=== PATIENT | female | born 1995 | race Caucasian/White ===

== ENCOUNTER 2020-12-08 17:20 | Emergency (ER) | payer MEDICAID ==
[~2020-12-08] VITALS: Ht 165.1 cm; Wt 66.4 kg
[2020-12-08 18:07] VITALS: BP 113/82; TEMP 98.1
[2020-12-08] MEDS ORDERED: PREDNISONE10 MG PO (18:24)
[2020-12-08 18:40] VITALS: PULSE 71
== END 2020-12-08 18:41 | disposition home or self-care (01) ==
LOC: COL.ER 17:20
DX: L50.9 Urticaria, unspecified (principal)
CPT/HCPCS: J7512

== ENCOUNTER 2021-11-16 13:03 | Emergency (ER) | payer MEDICAID ==
[~2021-11-16] VITALS: Ht 165.1 cm; Wt 59.1 kg
[~2021-11-16 13:03] MED LIST: PREDNISONE10 MG PO
[2021-11-16 13:21] VITALS: TEMP 97.8
[2021-11-16] MEDS ORDERED: NORCO 325 MG-51 TAB PO (15:28)
[2021-11-16 16:43] VITALS: BP 122/76; PULSE 80
== END 2021-11-16 16:50 | disposition home or self-care (01) ==
LOC: COL.ER 13:03
DX: S62.306A Unspecified fracture of fifth metacarpal bone, right hand, initial encounter for closed fracture (principal); F17.290 Nicotine dependence, other tobacco product, uncomplicated; W18.40XA Slipping, tripping and stumbling without falling, unspecified, initial encounter; Y92.009 Unspecified place in unspecified non-institutional (private) residence as the place of occurrence of the external cause

== ENCOUNTER 2023-08-28 18:26 | Outpatient (CLI) | payer MEDICAID ==
[~2023-08-28] VITALS: Ht 165.1 cm; Wt 90.5 kg
[~2023-08-28 18:26] MED LIST changes: +NAPROSYN500 MG PO; +NORCO 325 MG-51 TAB PO; +REGLAN 10MG10 MG/TAB PO; +TESSALON PERLE200 MG PO
--- NOTE | 2023-08-28 18:40 | NUR ---
G4L3. 39.0. Ambulatory to LDR 3 with her mothers. Clean gown on. EFM and TOCO explained and applied. Pt states that she has been having "back pain and belly tightening." Pt reports not feeling her contractions with her last labors so she wanted to see if she was having contractions. Plan of care explained to pt and mother. 1899: at nurses station and update on pt's status given and FHR strip reviewed. See physican notification. 1999: SVE unchanged. Questions answered and pt off monitors to changed. 2010: Discharge instructions given to pt and mother who verbalize their understanding. Pt ambulatory off unit.
[2023-08-28 19:00] VITALS: BP 135/88; PULSE 102; TEMP 98.1
[2023-08-28] MEDS ORDERED: LR 1,000 ML IV PRN (19:15)
[2023-08-28 19:30] VITALS: BP 128/78; PULSE 83
[2023-08-28 20:01] VITALS: BP 121/79; PULSE 96
== END 2023-08-28 20:10 | disposition home or self-care (01) ==
LOC: LDRO 18:26
DX: O47.1 False labor at or after 37 completed weeks of gestation (principal); Z3A.39 39 weeks gestation of pregnancy

== ENCOUNTER 2023-09-01 08:51 | Inpatient (IN) | payer MEDICAID ==
[~2023-09-01] VITALS: Ht 165.1 cm; Wt 90.5 kg
[2023-09-01] VITALS (50 sets, daily range): BP systolic 118–168; BP diastolic 65–102; PULSE 58–119; TEMP 98–98.8
--- NOTE | 2023-09-01 09:00 | NUR ---
0900PT AMBULATORY TO UNIT FOR SROM CHECK. PT CHANGED INTO GOWN. PT COMFORTABLE IN BED. 0905THIS RN AT BEDSIDE TO PLACE TOCO AND EFM. EFM TRACING CAT I. PT DENIES REGULAR CTX PATTERN, JUST TO OCCASIONAL TIGHETENIG OF HER STOMACH. PT REPORTS POSITIVE MOVEMENT. PT STATES SHE THINKS MAYBE HER WATER BROKE. SHE WOKE UP THIS MORNING AND HAD SOME LEAKAGE IN HER UNDERWEAR. SHE GOT DRESSED AND PUT A PAD ON. SHE TOOK HER DAUGHTER TO THE BUS STATION, AND THEN FELT SOME MORE LEAKING. 0910SVE PER THIS RN. -/-3. AMNITRACE X2 INCONCLUSIVE. 0915ROM PLUS PERFORMED AT THIS TIME.
[2023-09-01] MEDS ORDERED: LR 1,000 ML IV PRN (09:30)
--- NOTE | 2023-09-01 09:50 | NUR ---
PT OFF MONITOR. INTERMITTENT MONITORING. EFM TRACING CAT I. PT SITTING UP RIGHT IN THE BED.
--- NOTE | 2023-09-01 10:45 | NUR ---
PT PLUGGED BACK INTO MONITORS IN BY YESSI VILLEDA. THIS RN WAS IN ANOTHER PT ROOM PREPARING FOR DELIVERY.
[2023-09-01] MEDS ORDERED: LR 1,000 ML IV SCH (11:00)
[2023-09-01] MEDS ORDERED: ceFAZolin 2 G in Water For Injection,Sterile 20 ML IV ONE (11:00)
[2023-09-01] MEDS ORDERED: LR & Oxytocin 500 ML IV SCH (11:00)
--- NOTE | 2023-09-01 11:00 | NUR ---
THIS RN ASSUMES CARE OF PT AT THIS TIME. ON UNIT WITH VERBAL ORDERS TO ADMIT PATIENT, START PITOCIN, AND THAT PT MAY HAVE AN EPIDURAL UPON REQUEST. REMAINS ON UNIT AT THIS TIME.
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
[2023-09-01 12:26] LABS: BASO % 0.5 % (0.0-2.0); EOS # 0.1 K/mm3 (0.0-0.7); EOS % 1.1 % (0.0-4.0); GRAN # 6.7 K/mm3 (1.4-6.5); GRAN % 74.9 % (42.2-75.2); HEMOGLOBIN 11.4 g/dl (12.5-16.0); LYMPH # 1.5 K/mm3 (1.2-3.4); MEAN CELL VOLUME 82 fl (80.0-100.0); MEAN CORPUSCULAR HEMOGLOBIN 26 pg (27-31); MEAN CORPUSCULAR HGB CONC 31 g/dl (33.0-37.0); MEAN PLATELET VOLUME 11.1 fl (7.4-10.4); MONO # 0.5 K/mm3 (0.1-0.6); MONO % 5.9 % (1.7-9.3); PLATELET COUNT 183 K/mm3 (130-400); RED BLOOD COUNT 4.46 M/mm3 (4.10-5.30); REDCELL DISTRIBUTION WIDTH-CV 15.9 % (11.5-14.5)
[2023-09-01 12:40] LABS: HEMATOCRIT 36.5 % (37.0-47.0)
--- NOTE | 2023-09-01 13:35 | NUR ---
storage brine worker spoke with patient's nurse regarding consult. Patient has not given yet, social media marketing analyst will meet with patient tomorrow.
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
[2023-09-01 15:53] LABS: ALBUMIN 3.5 g/dL (3.5-5.0); BILIRUBIN,TOTAL 0.5 mg/dL (0.2-1.2); CALCIUM 8.7 mg/dL (8.4-10.2); CREATININE, serum 0.63 mg/dL (0.57-1.11); POTASSIUM 3.8 mEq/L (3.5-4.5)
[2023-09-01] MEDS ORDERED: ROPivacaine PF 0.2% 200 ML IV ONE (16:39)
--- NOTE | 2023-09-01 16:51 | NUR ---
PT TO SITTING POSITION ON EDGE OF BED FOR EPIDURAL PLACEMENT. DIFFICULTY TRACING EFM DUE TO MATERNAL POSITIONING. CATEGORY 1 TRACING PRIOR TO SITTING POSITION. 1651: SINGLE SHOT PER JENNIFER SOLER. PT TOLERATED PROCEDURE WELL. MATERNAL VSS. BLOOD NOTED IN CATHETER, EPIDURAL CATHETER REMOVED @ 1653, REATTEMPT INITIATED PER [facility] FOLLOWING REMOVAL. 1703: NEW EPIDURAL CATHETER PLACED. TEST DOSE @ 1703 PER JENNIFER SOLER. PT TOLERATED TEST DOSE WELL, MATERNAL VSS.
[2023-09-01] MEDS ORDERED: diphenhydrAMINE 25 MG CAP PO PRN (17:30)
[2023-09-01] MEDS ORDERED: ePHEDrine 50 MG/10 ML VIAL IV PRN (17:30)
[2023-09-01] MEDS ORDERED: Naloxone 0.4 MG/ML VIAL IV PRN (17:30)
[2023-09-01] MEDS ORDERED: Ondansetron 4 MG/2 ML VIAL IV PRN (17:30)
[2023-09-01] MEDS ORDERED: diphenhydrAMINE 50 MG/ML 1 ML VIAL IV PRN (17:30)
[2023-09-01] MEDS ORDERED: ceFAZolin 1 G in Water For Injection,Sterile 10 ML IV SCH (19:00)
--- NOTE | 2023-09-01 22:00 | NUR ---
To WR per pt request. FHT's not tracing, this RN continues at bedside attempting to trace FHT's. 2207 Unable to maintain FHT tracing. Pt turned to [facility]. FHT tracing obtained. This RN out of room. 2209 FHT tracing lost. This RN into room, discuss placing FSE to maintain tracing. PT and mother discussing. 221 Pt cries out "the she's coming" SVE Complete +1. Dr Webb notifed to come for delivery. NSY and charge nurse notified. 2220 Villareal dc'd, Pitocin gtt off, perineal prep done. 2229 Dr Webb into room, bed set for delivery. Dr Webb does perineal prep. Dr Webb gives pushing instructions. [address] Webb. to pt's chest. 2247 Placenta delivers spont and intact with 3 vessell cord. Pitocin gtt to bolus rate. 2250 Lidocaine instilled to perineum by Dr Webb for repair. 2258 Bed together.
[2023-09-02] VITALS (7 sets, daily range): BP systolic 111–142; BP diastolic 62–92; PULSE 61–86; TEMP 98–98.5
[2023-09-02] MEDS ORDERED: Mag/Al Hydrox/Simeth Susp 30 ML CUP PO PRN (01:00)
[2023-09-02] MEDS ORDERED: Acetaminophen 500 MG TAB PO PRN (01:00)
[2023-09-02] MEDS ORDERED: Witch Hazel 50% Pads Bulk TUB TP PRN (01:00)
[2023-09-02] MEDS ORDERED: oxyCODONE 5 MG TAB PO PRN (01:00)
[2023-09-02] MEDS ORDERED: Phenylephrine/Mineral Oil/Petrolatum 57 GM TUBE RC PRN (01:00)
[2023-09-02] MEDS ORDERED: Measles/Mumps/Rubella Virus Vaccine Live w Diluent 0.5 ML VIAL SQ SCH (01:00)
[2023-09-02] MEDS ORDERED: Naloxone 0.4 MG/ML VIAL IV PRN (01:00)
[2023-09-02] MEDS ORDERED: Ibuprofen 600 MG TAB PO SCH (01:00)
--- NOTE | 2023-09-02 01:00 | NUR ---
IV to INT, epidural catheter dc'd. Up to bathroom with 'fidencio steady' assist. Voids, performs own pericare. Ice pack applied per pt request. To room via fidencio steady. Oriented to room, plan of care. Pt instructed to call for assistance before getting out of bed. Verbalizes understanding.
[2023-09-02] MEDS ORDERED: Sennosides/Docusate 8.6-50 MG TAB PO SCH (08:00)
[2023-09-02] MEDS ORDERED: IBU600 MG PO (08:41)
[2023-09-02] MEDS ORDERED: Loratadine 10 MG TAB PO PRN (09:00)
--- NOTE | 2023-09-02 09:37 | NUR ---
Initial visit;a Patient thanked Boring Mill Operator [employer] for stopping and introduced Boring [employer] to her mother, her friend and sister. Boring [employer] Operator [employer] thanked them all for being of support to Anita as she welcoms her daughter.
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
[2023-09-02] MEDS ORDERED: traZODone 50 MG TAB PO PRN (21:00)
[2023-09-02] MEDS ORDERED: Magnes Hydrox (MOM) 80 MG/ML 30 ML CUP PO PRN (21:00)
[2023-09-03 07:15] VITALS: BP 122/75; PULSE 68; TEMP 98
== END 2023-09-03 12:30 | disposition home or self-care (01) | DRG 807 ==
LOC: LDRO 08:51 → OB 11:00 → LDR 11:00 → OB 09-02 01:30
PROVIDERS: Obstetrics & Gynecology; ADMIT Obstetrics & Gynecology
PROC: 10E0XZZ Delivery of Products of Conception, External Approach (ICD-10-PCS; principal; 2023-09-01)
PROC: 3E033VJ Introduction of Other Hormone into Peripheral Vein, Percutaneous Approach (ICD-10-PCS; 2023-09-01)
PROC: 0HQ9XZZ Repair Perineum Skin, External Approach (ICD-10-PCS; 2023-09-01)
DX: O99.344 Other mental disorders complicating childbirth (principal); Z37.0 Single live birth; O99.824 Streptococcus B carrier state complicating childbirth; F31.9 Bipolar disorder, unspecified; F43.10 Post-traumatic stress disorder, unspecified; M41.9 Scoliosis, unspecified; O70.0 First degree perineal laceration during delivery; O13.4 Gestational [pregnancy-induced] hypertension without significant proteinuria, complicating childbirth; O99.892 Other specified diseases and conditions complicating childbirth; Z3A.39 39 weeks gestation of pregnancy; Q07.00 Arnold-Chiari syndrome without spina bifida or hydrocephalus; Z88.1 Allergy status to other antibiotic agents; Z88.2 Allergy status to sulfonamides; Z88.8 Allergy status to other drugs, medicaments and biological substances
CPT/HCPCS: J0690; J2590; J2795; J7120

== ENCOUNTER → 2023-12-15 | Outpatient (CLI) | payer MEDICAID ==
[~2023-12-15] MED LIST changes: +IBU600 MG PO
== END ==
LOC: COL.RAD 08:42
DX: Q07.00 Arnold-Chiari syndrome without spina bifida or hydrocephalus (principal); M47.812 Spondylosis without myelopathy or radiculopathy, cervical region; M48.02 Spinal stenosis, cervical region